=== PATIENT | female | born 1970 | race Caucasian/White ===

== ENCOUNTER 2016-11-23 14:17 | Outpatient (CLI) | payer OTHER | END 2016-11-23 14:18 | disposition home or self-care (01) | DX: D64.9 Anemia, unspecified (principal); M25.50 Pain in unspecified joint; F45.8 Other somatoform disorders; R51 Headache; E28.319 Asymptomatic premature menopause; E28.2 Polycystic ovarian syndrome ==

== ENCOUNTER 2016-11-30 19:01 | Outpatient (CLI) | payer OTHER ==
[2016-11-30] MEDS ORDERED: IOPAMIDOL-300 100 ML VIAL IVP ONE (19:24)
== END 2016-11-30 19:02 | disposition home or self-care (01) ==
DX: F45.8 Other somatoform disorders (principal)
CPT/HCPCS: 70491; Q9967

== ENCOUNTER 2016-12-30 20:29 | Emergency (ER) | payer OTHER ==
--- NOTE | 2016-12-30 20:36 | ED Physician Documentation ---
PD HPI HEENT - Stated complaint Stated Complaint: SORE THROAT/SINUS - History obtained from History obtained from: Patient - History of Present Illness Timing - onset: Today (this morning) Timing - duration: Hours Timing - details: Gradual onset Pain level now: 5 Associated symptoms: Congestion, Rhinorrhea. 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 HEENT: None Psych: None Musculoskeletal: Osteoarthritis Derm: None - Past Surgical History Past Surgical History: Yes General: EGD - Present Medications Home Medications: Ambulatory Orders Medication Instructions Recorded Confirmed Estrogen,Con/M-Progest Acet 1 each PO DAILY 04/11/15 12/30/16 [Prempro 0.3 mg-1.5 mg Tablet] Cetirizine [ZyrTEC] 10 mg PO DAILY #20 tablet 08/15/16 12/30/16 Amox/Clav 875/125 [Augmentin] 1 each PO Q12H #19 tablet 12/30/16 - Allergies Allergies/Adverse Reactions: Allergies Allergy/AdvReac Type Severity Reaction Status Date / Time codeine Allergy Anaphylaxis Verified 12/30/16 20:38 Sulfa (Sulfonamide Allergy Anaphylaxis Verified 12/30/16 20:38 Antibiotics) - Social History Does the pt smoke?: No Smoking Status: Never smoker Does the pt drink ETOH?: Yes Does the pt have substance abuse?: No - Immunizations Immunizations are current?: Yes PD ED PE NORMAL - Vitals Vital signs reviewed: Yes - General General: Alert and oriented X 3, No acute distress, Well developed/nourished - HEENT HEENT: Moist mucous membranes, Pharynx benign - Neck Neck: Supple, no meningeal sign Results - Vitals Vitals: Vital Signs - 24 hr 12/30/16 20:34 Temperature 37.1 C Heart Rate 99 Respiratory 18 Rate Blood Pressure 145/91 H O2 Saturation 100 Oxygen O2 Source Room air PD MEDICAL DECISION MAKING - ED course Complexity details: reviewed old records, considered differential, d/w patient Departure - Departure Disposition: 01 Home, Self Care Clinical Impression: Sinusitis Qualifiers: Sinusitis location: unspecified location Chronicity: acute Recurrence: not specified as recurrent Qualified Code(s): J01.90 - Acute sinusitis, unspecified Pharyngitis Qualifiers: Pharyngitis/tonsillitis etiology: unspecified etiology Qualified Code(s): J02.9 - Acute pharyngitis, unspecified Condition: Good Instructions: ED Sinusitis Abx Tx Follow-Up: Laurie Lam PA [Primary Care Provider] - (3-5 days if symptoms have not improved) Prescriptions: Amox/Clav 875/125 [Augmentin] 1 each PO Q12H #19 tablet Discharge Date/Time: 12/30/16 21:01
[2016-12-30 20:38] VITALS: BP 145/91
[2016-12-30] MEDS ORDERED: AMOX/CLAV 875 MG/125 MG TABLET PO STA (20:51)
[2016-12-30] MEDS ORDERED: DEXAMETHASONE 10 MG/ML VIAL PO STA (20:51)
[2016-12-30] MEDS ORDERED: AMOX/CLAV 875 MG/125 MG TABLET PO ONE (20:53)
[2016-12-30] MEDS ORDERED: CHERRY SYRUP 10 ML UDC PO ONE (20:54)
[2016-12-30] MEDS ORDERED: DEXAMETHASONE 10 MG/ML VIAL ONE (20:54)
== END 2016-12-30 21:01 | disposition home or self-care (01) ==
LOC: ED 20:29
DX: J01.90 Acute sinusitis, unspecified (principal); J02.9 Acute pharyngitis, unspecified
CPT/HCPCS: 99283; A9270

== ENCOUNTER 2017-06-13 13:34 | Outpatient (CLI) | payer OTHER ==
--- NOTE | 2017-06-15 12:30 | Ultrasound Report ---
PELVIC ULTRASOUND: 06/13/2017 COMPARISON: None. INDICATION: Pelvic pain. TECHNIQUE: Ultrasound of the pelvis was performed using transabdominal and endovaginal technique. FINDINGS: The uterus appears normal in size and echogenicity, apart from an endometrial calcificatio n measuring 6 mm. There are a few tiny nabothian cysts. No free fluid in the pelvis. The ovaries appear normal in size and echogenicity, with normal color Doppler flow. Uterus 6.1 x 3.9 x 2.3 cm. Right ovary 1.6 x 0.9 x 0.9 cm. Left ovary 1.7 x 1.5 x 1.5 cm. IMPRESSION: ESSENTIALLY NEGATIVE PELVIS ULTRASOUND. JOB #: [id number] EXT JOB #:[id number]
== END 2017-06-13 13:35 | disposition home or self-care (01) ==
LOC: DI 13:34
PROVIDERS: ATTEND Physician Assistant
DX: R10.2 Pelvic and perineal pain (principal)
CPT/HCPCS: 76830; 76856

== ENCOUNTER 2017-07-16 05:53 | Emergency (ER) | payer OTHER ==
--- NOTE | 2017-07-16 06:22 | ED Physician Documentation ---
PD HPI ABD PAIN - Stated complaint Stated Complaint: ABDOMINAL PAIN - Chief complaint Chief Complaint: Abd Pain - History obtained from History obtained from: Patient - History of Present Illness Timing - onset: Enter time (05:00), Today Timing - details: Abrupt onset, Waxing and waning Pain level max: 10 Pain level now: 2 Quality: Pain Location: RLQ Improved by: Position, Other (no ameliorating factors) Worsened by: Moving Associated symptoms: No: Fever, Nausea, Vomiting, Constipation, Dysuria, Chest pain Similar symptoms before: No diagnosis (similar episode 6 months ago, had pelvic US without diagnostic results) Recently seen: Not recently seen Review of Systems Constitutional: denies: Fever Cardiac: reports: Reviewed and negative Respiratory: reports: Reviewed and negative GI: reports: Abdominal Pain. 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 : None HEENT: None Psych: None Musculoskeletal: Osteoarthritis Derm: None - Past Surgical History Past Surgical History: Yes General: EGD - Present Medications Home Medications: Ambulatory Orders Medication Instructions Recorded Confirmed Estradiol 1 mg PO DAILY 12/31/16 07/16/17 Progesterone,Micronized 100 mg PO DAILY 12/31/16 07/16/17 [Progesterone] - Allergies Allergies/Adverse Reactions: Allergies Allergy/AdvReac Type Severity Reaction Status Date / Time codeine Allergy Anaphylaxis Verified 07/16/17 06:14 Sulfa (Sulfonamide Allergy Anaphylaxis Verified 07/16/17 06:14 Antibiotics) - Social History Does the pt smoke?: No Smoking Status: Never smoker Does the pt drink ETOH?: Yes Does the pt have substance abuse?: No - Immunizations Immunizations are current?: Yes - POLST Patient has POLST: No PD ED PE NORMAL - Vitals Vital signs reviewed: Yes - General General: Alert and oriented X 3, No acute distress, Well developed/nourished - Cardiac Cardiac: RRR, No murmur - Respiratory Respiratory: No respiratory distress, Clear bilaterally - Abdomen Abdomen: Soft - Back Back: No CVA TTP - Derm Derm: No rash - Extremities Extremities: No edema PD ED PE EXPANDED - Abdomen Abdomen: Tender to palpation, RLQ (mild TTP) Results - Vitals Vitals: Vital Signs - 24 hr 07/16/17 07/16/17 05:59 09:25 Temperature 36.6 C Heart Rate 76 64 Respiratory 17 14 Rate Blood Pressure 133/80 H 114/72 O2 Saturation 97 98 Oxygen O2 Source Room air - Labs Labs: Laboratory Tests 07/16/17 07/16/17 07/16/17 06:00 06:05 06:05 WBC 6.0 RBC 4.49 Hgb 14.0 Hct 42.2 MCV 94.0 MCH 31.2 H MCHC 33.2 RDW 12.1 Plt Count 198 MPV 8.6 Neut # 2.4 Lymph # 3.2 [place] # 0.4 Eos # 0.0 Baso # 0.0 Absolute Nucleated RBC 0.01 Nucleated RBC % 0.1 Sodium 139 Potassium 3.3 L Chloride 104 Carbon Dioxide 27 Anion Gap 8.0 BUN 24 H Creatinine 0.9 Estimated GFR (MDRD) 67 L Glucose 98 Calcium 9.0 Total Bilirubin 0.3 AST 23 ALT 24 Alkaline Phosphatase 36 L Total Protein 7.6 Albumin 4.4 Globulin 3.2 Albumin/Globulin Ratio 1.4 Lipase 50 Urine Color YELLOW Urine Clarity CLEAR Urine pH 6.0 Ur Specific [place] 1.010 Urine Protein NEGATIVE Urine Glucose (UA) NEGATIVE Urine Ketones NEGATIVE Urine Occult Blood NEGATIVE Urine Nitrite NEGATIVE Urine Bilirubin NEGATIVE Urine Urobilinogen 0.2 (NORMAL) Ur Leukocyte Esterase TRACE H Urine RBC 0-5 Urine WBC 6-10 H Ur Squamous Epith Cells MOD Squamous H Urine Bacteria Few Ur Microscopic Review INDICATED Urine Culture Comments NOT INDICATED - Rads (name of study) CT A/P Radiology: Prelim report reviewed, See rad report PD MEDICAL DECISION MAKING - ED course Complexity details: reviewed results, re-evaluated patient, considered differential, d/w patient Departure - Departure Disposition: 01 Home, Self Care Clinical Impression: Abdominal pain, Cholelithiasis Condition: Good Instructions: ED Abdominal Pain Unkn Cause Follow-Up: Nikita Boyce MD [Provider Admit Priv/Credential] - Comments: Your CT scan shows that you have gallstones. This might be an incidental finding (not causing your symptoms). Follow up with your primary care physician , as they might order other tests and/or might refer you to a general surgeon or rehabilitation liaison. Discharge Date/Time: 07/16/17 09:40
[2017-07-16 06:24] LABS: BASOPHILS % (AUTO) 0.5 %; EOSINOPHILS % (AUTO) 0.3 %; HCT - HEMATOCRIT 42.2 % (37.0-47.0); LYMPHOCYTES # (AUTO) 3.2 10^3/uL (1.5-3.5); MEAN CORPUSCULAR HEMOGLOBIN 31.2 pg (27.0-31.0); MEAN CORPUSCULAR HGB CONC 33.2 g/dL (32.0-36.0); MEAN PLATELET VOLUME 8.6 fL (7.9-10.8); MONOCYTES # (AUTO) 0.4 10^3/uL (0.0-1.0); NEUTROPHILS # (AUTO) 2.4 10^3/uL (1.5-6.6); NEUTROPHILS % (AUTO) 40.2 %; NUCLEATED RED BLOOD CELLS AUTO 0.1 /100WBC; RED BLOOD COUNT 4.49 10^6/uL (4.20-5.40); RED CELL DISTRIBUTION WIDTH 12.1 % (12.0-15.0)
[2017-07-16 06:27] LABS: BILIRUBIN,URINE NEGATIVE (NEGATIVE)
[2017-07-16 06:31] LABS: UA w/ MICROSCOPIC CHARGE YES
[2017-07-16 06:36] LABS: ALBUMIN/GLOBULIN RATIO 1.4 (1.0-2.2); BILIRUBIN,TOTAL 0.3 mg/dL (0.2-1.0); CREATININE 0.9 mg/dL (0.4-1.0); POTASSIUM 3.3 mmol/L (3.5-5.0); TOTAL PROTEIN 7.6 g/dL (6.7-8.2)
[2017-07-16 06:59] LABS: UR CULTURE IF IND NOT INDICATED
[2017-07-16] MEDS ORDERED: IOPAMIDOL-300 100 ML VIAL ONE (07:35)
[2017-07-16] MEDS ORDERED: IOPAMIDOL-300 100 ML VIAL IVP ONE (07:56)
--- NOTE | 2017-07-16 08:21 | CT Preliminary Report ---
Exam: CT ABDOMEN/PELVIS W/ IMPRESSION: 1. No acute intra-abdominal or intrapelvic abnormality. 2. Cholecystolithiasis. [facility] SITE ID: [id number]
--- NOTE | 2017-07-16 08:24 | CT Report ---
EXAM: CT ABDOMEN AND PELVIS EXAM DATE: 07/16/2017 07:57 AM. CLINICAL HISTORY: RLQ pain. COMPARISONS: None available. TECHNIQUE: Routine helical CT imaging was performed through the abdomen and pelvis. IV contrast: 100M L OF ISOVUE 300. Enteric contrast: No. Reconstructions: Coronal and sagittal. In accordance with CT protocol optimization, one or more of the following dose reduction techniques w ere utilized for this exam: automated exposure control, adjustment of mA and/or KV based on patient s ize, or use of iterative reconstructive technique. FINDINGS: Lung Bases: Unremarkable. Liver: There are 2 tiny low-density lesions in the liver which are too small to characterize. Liver o therwise appears unremarkable. Gallbladder/Bile Ducts: There are gallstones. No abnormal bile duct dilation. Spleen: Normal. Pancreas: Normal. Adrenal Glands: Normal. Kidneys: Normal. No masses or hydronephrosis. Peritoneal Cavity/Bowel: Normal. No free fluid, free air or adenopathy. No masses or acute inflammato ry process. The appendix is well visualized and normal series 6 images 47 through 51. Pelvic Organs: Normal. The bladder and visualized pelvic organs are within normal limits. Vasculature: No aneurysms or other significant abnormality. Bones: Prominent Schmorl's node in the superior endplate of L3. Anterolisthesis of L5 on S1 measuring 0.5 cm. Other: No pathologic adenopathy. IMPRESSION: 1. No acute intra-abdominal or intrapelvic abnormality. 2. Cholecystolithiasis. [facility] Referring Provider Line: [phone] SITE ID: [id number]
[2017-07-16 09:26] VITALS: BP 114/72
== END 2017-07-16 09:40 | disposition home or self-care (01) ==
LOC: ED 05:53
DX: K80.20 Calculus of gallbladder without cholecystitis without obstruction (principal); M19.90 Unspecified osteoarthritis, unspecified site
CPT/HCPCS: 36415; 74177; 80053; 81001; 83690; 85025; 99283; Q9967; 81003; 87086

== ENCOUNTER 2017-10-06 13:09 | Outpatient (CLI) | payer OTHER | END 2017-10-06 13:10 | disposition home or self-care (01) | LOC: CAM 13:09 | PROVIDERS: ATTEND Nurse Practitioner Family | DX: M25.579 Pain in unspecified ankle and joints of unspecified foot (principal); G89.29 Other chronic pain; M54.5 Low back pain | CPT/HCPCS: 97813; 97814 ==

== ENCOUNTER 2017-11-10 13:04 | Outpatient (CLI) | payer OTHER | END 2017-11-10 13:05 | disposition home or self-care (01) | LOC: CAM 13:04 | PROVIDERS: ATTEND Nurse Practitioner Family | DX: M25.579 Pain in unspecified ankle and joints of unspecified foot (principal); M54.2 Cervicalgia; M54.5 Low back pain | CPT/HCPCS: 97810; 97811 ==

== ENCOUNTER 2017-12-08 18:54 | Outpatient (CLI) | payer OTHER ==
--- NOTE | 2017-12-09 11:38 | XRAY Report ---
TWO-VIEW LUMBAR SPINE: 12/08/2017 CLINICAL INDICATION: Back pain. FINDINGS: AP and lateral views of the lumbar spine demonstrate a mild anterior wedge compression deformity of L3. There is mild dextroscoliosis. No acute fracture is seen. The bowel gas pattern is normal. IMPRESSION: 1. REMOTE MILD ANTERIOR WEDGE COMPRESSION DEFORMITY OF L3. 2. MILD DEXTROSCOLIOSIS. TD: 12/09/2017 11:37
--- NOTE | 2017-12-09 11:42 | XRAY Report ---
THREE-VIEW RIGHT KNEE: 12/08/2017 CLINICAL INDICATION: Right knee pain. FINDINGS: AP, lateral, sunrise views of the right knee demonstrate mild osteoarthritis, with small marginal osteophytes. Old, healed proximal tibial and fibular shaft fractures are noted. No effusion is present. IMPRESSION: MILD RIGHT KNEE OSTEOARTHRITIS. TD: 12/09/2017 11:41
== END 2017-12-08 18:55 | disposition home or self-care (01) ==
LOC: DI 18:54
PROVIDERS: ATTEND Physician Assistant
DX: M17.11 Unilateral primary osteoarthritis, right knee (principal); M43.8X6 Other specified deforming dorsopathies, lumbar region; M41.86 Other forms of scoliosis, lumbar region
CPT/HCPCS: 72100

== ENCOUNTER 2017-12-10 09:48 | Emergency (ER) | payer OTHER ==
[2017-12-10] MEDS ORDERED: DEXAMETHASONE 10 MG/ML VIAL PO STA (10:03)
--- NOTE | 2017-12-10 10:04 | ED Physician Documentation ---
PD HPI HEENT - Stated complaint Stated Complaint: SORE THROAT - Chief complaint Chief Complaint: Heent - History obtained from History obtained from: Patient - History of Present Illness Timing - onset: Yesterday Timing - duration: Days (2) Timing - details: Gradual onset, Still present Location: Throat Improves: Medication Worsens: Swalllowing Associated symptoms: Congestion. 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 She states that his throat feels dry and scratchy and she lost her voice yesterday. She states that she lost her voice again this morning and she has not had a cough or drainage down the back of her throat. Review of Systems Constitutional: denies: Fever Eyes: denies: Decreased vision Ears: denies: Ear pain Nose: reports: Congestion. 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 : None HEENT: None Psych: None Musculoskeletal: Osteoarthritis Derm: None - Past Surgical History Past Surgical History: Yes General: EGD - Present Medications Home Medications: Ambulatory Orders Medication Instructions Recorded Confirmed Estradiol 1 mg PO DAILY 12/31/16 07/16/17 Progesterone,Micronized 100 mg PO DAILY 12/31/16 07/16/17 [Progesterone] - Allergies Allergies/Adverse Reactions: Allergies Allergy/AdvReac Type Severity Reaction Status Date / Time codeine Allergy Anaphylaxis Verified 12/10/17 09:56 Sulfa (Sulfonamide Allergy Anaphylaxis Verified 12/10/17 09:56 Antibiotics) - Social History Does the pt smoke?: No Smoking Status: Never smoker Does the pt drink ETOH?: Yes Does the pt have substance abuse?: No - Immunizations Immunizations are current?: Yes - POLST Patient has POLST: No PD ED PE NORMAL - Vitals Vital signs reviewed: Yes (normal ) - General General: Alert and oriented X 3, No acute distress, Well developed/nourished - HEENT HEENT: Atraumatic, PERRL, EOMI, Ears normal, Moist mucous membranes, Pharynx benign, Dentition benign - Neck Neck: Supple, no meningeal sign, No bony TTP - Cardiac Cardiac: RRR, No murmur - Respiratory Respiratory: No respiratory distress, Clear bilaterally - Abdomen Abdomen: Soft, Non tender - Back Back: No CVA TTP, No spinal TTP - Derm Derm: Normal color, Warm and dry, No rash - Extremities Extremities: No deformity, No edema - Neuro Neuro: Alert and oriented X 3, No motor deficit, No sensory deficit, Normal speech Eye Opening: Spontaneous Motor: Obeys Commands Verbal: Oriented GCS Score: 15 - Psych Psych: Normal mood, Normal affect Results - Vitals Vitals: Vital Signs - 24 hr 12/10/17 12/10/17 09:52 10:47 Temperature 36.5 C 36.5 C Heart Rate 81 56 L Respiratory 14 18 Rate Blood Pressure 122/70 112/71 O2 Saturation 96 97 Oxygen O2 Source Room air - Labs Labs: Laboratory Tests 12/10/17 10:00 Group A Strep Rapid Negative PD MEDICAL DECISION MAKING - ED course Complexity details: reviewed results, re-evaluated patient, considered differential, d/w patient ED course: 47 y/o female with a sore throat and no cough or OM on exam. She has lost her voice and likely due to para-influenza and she is treated for viral URI. Departure - Departure Disposition: 01 Home, Self Care Clinical Impression: Viral URI Condition: Stable Instructions: ED Pharyngitis Viral Follow-Up: Laurie Lam PA [Primary Care Provider] - Discharge Date/Time: 12/10/17 10:47
[2017-12-10] MEDS ORDERED: CHERRY SYRUP 10 ML UDC PO ONE (10:16)
[2017-12-10 10:48] VITALS: BP 112/71
== END 2017-12-10 10:47 | disposition home or self-care (01) ==
LOC: ED 09:48
DX: J06.9 Acute upper respiratory infection, unspecified (principal); B97.89 Other viral agents as the cause of diseases classified elsewhere; M19.90 Unspecified osteoarthritis, unspecified site
CPT/HCPCS: 87070; 87430; 99283; A9270

== ENCOUNTER 2017-12-15 12:59 | Outpatient (CLI) | payer OTHER | END 2017-12-15 13:00 | disposition home or self-care (01) | LOC: CAM 12:59 | PROVIDERS: ATTEND Nurse Practitioner Family | DX: M25.579 Pain in unspecified ankle and joints of unspecified foot (principal); M54.2 Cervicalgia; M54.5 Low back pain | CPT/HCPCS: 97810; 97811 ==

== ENCOUNTER 2017-12-29 13:02 | Outpatient (CLI) | payer OTHER | END 2017-12-29 13:03 | disposition home or self-care (01) | LOC: CAM 13:02 | PROVIDERS: ATTEND Nurse Practitioner Family | DX: M25.579 Pain in unspecified ankle and joints of unspecified foot (principal); M54.2 Cervicalgia; M54.5 Low back pain | CPT/HCPCS: 97810; 97811 ==

== ENCOUNTER 2018-01-12 13:12 | Outpatient (CLI) | payer OTHER | END 2018-01-12 13:13 | disposition home or self-care (01) | LOC: CAM 13:12 | PROVIDERS: ATTEND Nurse Practitioner Family | DX: M25.579 Pain in unspecified ankle and joints of unspecified foot (principal); M54.2 Cervicalgia; M54.5 Low back pain | CPT/HCPCS: 97810; 97811 ==

== ENCOUNTER 2018-01-20 18:12 | Emergency (ER) | payer OTHER ==
[2018-01-20 18:33] LABS: BILIRUBIN,URINE NEGATIVE (NEGATIVE); GLUCOSE, URINE (UA) NEGATIVE (NEGATIVE); KETONES,URINE (UA) NEGATIVE (NEGATIVE); LEUKOCYTE ESTERASE, URINE NEGATIVE (NEGATIVE); NITRITE,URINE NEGATIVE (NEGATIVE); OCCULT BLOOD,URINE NEGATIVE (NEGATIVE); PROTEIN,URINE NEGATIVE (NEGATIVE); UROBILINOGEN,URINE 0.2 (NORMAL) E.U./dL (NORMAL)
[2018-01-20 18:35] LABS: CLARITY,URINE CLEAR (CLEAR)
--- NOTE | 2018-01-20 18:43 | ED Physician Documentation ---
PD HPI ABD PAIN - Stated complaint Stated Complaint: ABD PAIN - Chief complaint Chief Complaint: Abd Pain - History obtained from History obtained from: Patient - History of Present Illness Timing - onset: Today Timing - duration: Hours (6) Timing - details: Gradual onset Pain level max: 8 Pain level now: 5 Quality: Aching, Pain Location: RLQ Improved by: Laying still Worsened by: Moving, Palpation Associated symptoms: Nausea, Diarrhea. No: Fever, Vomiting, Hematemesis, Constipation, Melena, Hematochezia Similar symptoms before: No diagnosis Recently seen: Not recently seen - Additional information Additional information: Patient states he developed right lower quadrant abdominal pain today. She states this is happened several times in the past with no cause found. 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 HEENT: None Psych: None Musculoskeletal: Osteoarthritis Derm: None - Past Surgical History Past Surgical History: Yes General: EGD - Present Medications Home Medications: Ambulatory Orders Medication Instructions Recorded Confirmed Estradiol 1 mg PO DAILY 12/31/16 07/16/17 Progesterone,Micronized 100 mg PO DAILY 12/31/16 07/16/17 [Progesterone] Hyoscyamine Sulfate [Levsin-Sl] 0.125 mg SL Q6H PRN #20 tab.subl 01/20/18 Melatonin 10 mg PO 01/20/18 - Allergies Allergies/Adverse Reactions: Allergies Allergy/AdvReac Type Severity Reaction Status Date / Time codeine Allergy Anaphylaxis Verified 01/20/18 18:17 Sulfa (Sulfonamide Allergy Anaphylaxis Verified 01/20/18 18:17 Antibiotics) - Social History Does the pt smoke?: No Smoking Status: Never smoker Does the pt drink ETOH?: Yes Does the pt have substance abuse?: No - Immunizations Immunizations are current?: Yes - POLST Patient has POLST: No PD ED PE NORMAL - Vitals Vital signs reviewed: Yes - General General: Alert and oriented X 3, No acute distress - HEENT HEENT: Moist mucous membranes - Neck Neck: Supple, no meningeal sign - Cardiac Cardiac: RRR, Strong equal pulses - Respiratory Respiratory: No respiratory distress, Clear bilaterally - Abdomen Abdomen: Soft, Other (Tender to palpation right lower quadrant at McBurney's point. No peritoneal signs.) - Back Back: No CVA TTP - Derm Derm: Warm and dry, No rash - Extremities Extremities: No edema, No calf tenderness / cord - Neuro Neuro: Alert and oriented X 3 Results - Vitals Vitals: Vital Signs - 24 hr 01/20/18 01/20/18 01/20/18 18:15 18:56 20:01 Temperature 36.1 C L 36.8 C Heart Rate 78 75 65 Respiratory 18 12 18 Rate Blood Pressure 129/67 128/75 121/83 H O2 Saturation 100 100 100 Oxygen O2 Source Room air - Labs Labs: Laboratory Tests 01/20/18 01/20/18 01/20/18 18:20 18:35 18:35 WBC 5.2 RBC 4.44 Hgb 13.9 Hct 41.3 MCV 92.9 MCH 31.2 H MCHC 33.5 RDW 12.4 Plt Count 211 MPV 8.8 Neut # (Auto) 2.6 Lymph # (Auto) 2.1 [place] # (Auto) 0.3 Eos # (Auto) 0.0 Baso # (Auto) 0.0 Absolute Nucleated RBC 0.01 Nucleated RBC % 0.1 Sodium 135 Potassium 3.8 Chloride 99 L Carbon Dioxide 28 Anion Gap 8.0 BUN 14 Creatinine 0.9 Estimated GFR (MDRD) 67 L Glucose 85 Calcium 9.0 Total Bilirubin 0.5 AST 24 ALT 28 Alkaline Phosphatase 36 L Total Protein 7.8 Albumin 4.3 Globulin 3.5 Albumin/Globulin Ratio 1.2 Lipase 39 Urine Color YELLOW Urine Clarity CLEAR Urine pH 6.0 Ur Specific [place] 1.020 Urine Protein NEGATIVE Urine Glucose (UA) NEGATIVE Urine Ketones NEGATIVE Urine Occult Blood NEGATIVE Urine Nitrite NEGATIVE Urine Bilirubin NEGATIVE Urine Urobilinogen 0.2 (NORMAL) Ur Leukocyte Esterase NEGATIVE Ur Microscopic Review NOT INDICATED Urine Culture Comments NOT INDICATED - Rads (name of study) CT abd/pelvis Radiology: Prelim report reviewed, EMP read contemporaneously, See rad report ( No acute abnormalities. Normal appendix. Cholelithiasis) PD MEDICAL DECISION MAKING - ED course Complexity details: reviewed results, re-evaluated patient, considered differential, d/w patient ED course: Patient is a 47-year-old female who presents to the emergency department with abdominal pain. Unclear etiology. No acute laboratory abnormalities. No acute findings on CT scan. Pain improved in the emergency department. Possible intestinal spasms? Would recommend that she follow-up with her doctor for further care. May benefit from a colonoscopy or GI referral. Will trial on hycosamine and see how this progresses and if the Levsin helps her. Patient counseled regarding signs and symptoms for which I believe and urgent re- evaluation would be necessary. Patient with good understanding of and agreement to plan and is comfortable going home at this time This document was made in part using voice recognition software. While efforts are made to proofread this document, sound alike and grammatical errors may occur. Departure - Departure Disposition: 01 Home, Self Care Clinical Impression: Abdominal pain Qualifiers: Abdominal location: right lower quadrant Qualified Code(s): R10.31 - Right lower quadrant pain Cholelithiasis Qualifiers: Cholelithiasis location: gallbladder Cholecystitis presence: without cholecystitis Biliary obstruction: without biliary obstruction Qualified Code(s) : K80.20 - Calculus of gallbladder without cholecystitis without obstruction Condition: Good Instructions: ED Abdominal Pain Unkn Cause Follow-Up: Laurie Lam PA [Primary Care Provider] - Within 1 week Prescriptions: Hyoscyamine Sulfate [Levsin-Sl] 0.125 mg SL Q6H PRN #20 tab.subl PRN Reason: Abdominal Pain Comments: Return if you worsen. The cause of your symptoms is unclear today. You would likely benefit from a colonoscopy and a GI referral. Discharge Date/Time: 01/20/18 20:57
[2018-01-20 18:48] LABS: BASOPHILS % (AUTO) 0.7 %; EOSINOPHILS % (AUTO) 0.1 %; HGB - HEMOGLOBIN 13.9 g/dL (12.0-16.0); LYMPHOCYTES # (AUTO) 2.1 10^3/uL (1.5-3.5); LYMPHOCYTES % (AUTO) 41.5 %; MEAN CORPUSCULAR HEMOGLOBIN 31.2 pg (27.0-31.0); MEAN CORPUSCULAR HGB CONC 33.5 g/dL (32.0-36.0); MEAN CORPUSCULAR VOLUME 92.9 fL (81.0-99.0); MEAN PLATELET VOLUME 8.8 fL (7.9-10.8); MONOCYTES # (AUTO) 0.3 10^3/uL (0.0-1.0); MONOCYTES % (AUTO) 6.4 %; NEUTROPHILS # (AUTO) 2.6 10^3/uL (1.5-6.6); NEUTROPHILS % (AUTO) 51.3 %; PLT - PLATELET COUNT 211 10^3/uL (130-450); RED BLOOD COUNT 4.44 10^6/uL (4.20-5.40); RED CELL DISTRIBUTION WIDTH 12.4 % (12.0-15.0); WHITE BLOOD COUNT 5.2 x10^3/uL (4.8-10.8)
[2018-01-20 18:54] LABS: ALBUMIN 4.3 g/dL (3.2-5.5); ALBUMIN/GLOBULIN RATIO 1.2 (1.0-2.2); BILIRUBIN,TOTAL 0.5 mg/dL (0.2-1.0); CREATININE 0.9 mg/dL (0.4-1.0); TOTAL PROTEIN 7.8 g/dL (6.7-8.2)
[2018-01-20] MEDS ORDERED: IOPAMIDOL-300 100 ML VIAL ONE (19:00)
[2018-01-20] MEDS ORDERED: IOPAMIDOL-300 100 ML VIAL IVP ONE (19:17)
--- NOTE | 2018-01-20 20:00 | CT Report ---
EXAM: CT ABDOMEN AND PELVIS EXAM DATE: 01/20/2018 07:18 PM. CLINICAL HISTORY: RLQ abd pain. COMPARISONS: None. TECHNIQUE: Routine helical CT imaging was performed through the abdomen and pelvis. IV contrast: 100 cc Isovue-300. Enteric contrast: No. Reconstructions: Coronal and sagittal. In accordance with CT protocol optimization, one or more of the following dose reduction techniques w ere utilized for this exam: automated exposure control, adjustment of mA and/or KV based on patient s ize, or use of iterative reconstructive technique. FINDINGS: ABDOMEN: Lung Bases: Incompletely included lower lungs are grossly clear. Heart size is within normal limits. No basilar effusions. Liver: Unremarkable aside from focal fat adjacent to the fissure for the possible ligament. Spleen: Unremarkable. Pancreas: Unremarkable. Gallbladder/Bile Ducts: Layering small gallstones are present. Biliary tree is normal caliber. Adrenal Glands: Unremarkable. Kidneys: No mass, calculi, or hydronephrosis. Peritoneum/Mesentery/Bowel: No free fluid, free air, or collection. No intestinal obstruction or inflammation. The appendix is within normal limits. Lymph nodes: No mesenteric, periportal, or retroperitoneal lymphadenopathy. Retroperitoneum: Abdominal aorta is nonaneurysmal. Portal vein is patent. Hepatic veins are patent. PELVIS: The bladder is unremarkable for the degree of distention. Uterus or partial uterus appears to be present. No obvious abnormally enlarged adnexal masses or cysts. No pelvic lymphadenopathy. Bones: No suspicious osseous lesions. IMPRESSION: No acute abnormalities. Cholelithiasis. [facility] Referring Provider Line: [phone] SITE ID: [id number]
--- NOTE | 2018-01-20 20:00 | CT Preliminary Report ---
Exam: CT ABDOMEN/PELVIS W/ IMPRESSION: No acute abnormalities. Cholelithiasis. [facility] SITE ID: [id number]
[2018-01-20 20:02] VITALS: BP 121/83
[2018-01-20] MEDS ORDERED: HYOSCYAMINE SL 0.125 MG TABLET SL STA (20:23)
== END 2018-01-20 20:57 | disposition home or self-care (01) ==
LOC: ED 18:12
DX: R10.31 Right lower quadrant pain (principal); K80.20 Calculus of gallbladder without cholecystitis without obstruction
CPT/HCPCS: 36415; 74177; 80053; 81003; 83690; 85025; 99283; 99284; A9270; Q9967; 81001; 87086

== ENCOUNTER 2018-01-26 13:03 | Outpatient (CLI) | payer OTHER | END 2018-01-26 13:04 | disposition home or self-care (01) | LOC: CAM 13:03 | PROVIDERS: ATTEND Nurse Practitioner Family | DX: M25.579 Pain in unspecified ankle and joints of unspecified foot (principal); M54.2 Cervicalgia; M54.5 Low back pain | CPT/HCPCS: 97810; 97811 ==

== ENCOUNTER 2018-02-06 20:44 | Outpatient (CLI) | payer OTHER ==
--- NOTE | 2018-02-07 11:27 | Ultrasound Report ---
Procedure Date: 02/06/2018 Accession Number: [id number] / [id number] Procedure: US - Pelvic w/Transvaginal CPT Code: FULL RESULT: EXAM: Pelvic w/Transvaginal DATE: 02/06/2018 9:51 PM CLINICAL HISTORY: RIGHT LOWER QUADRANT PAIN COMPARISON: 06/13/2017 pelvic ultrasound, 01/20/[address] TECHNIQUE: Real time scanning by the cuff turner was saved static images reviewed. Transabdominal approach for global evaluation. Endovaginal approach for detailed assessment of the uterus and ovaries. FINDINGS: Uterus: 5.8 x 2.8 x 4.1 cm, volume 35 cc. Retroverted position. Normal overall size and echotexture. Masses: None. Endometrium: 2 mm. Contains a 6 x 2 mm calcification as before. Cervix: Unremarkable. Right Ovary/Adnexa: 1.7 x 0.7 x 0.7 cm, volume 0.4 cc. Normal echotexture. Blood flow is present. No adnexal mass is seen. Left Ovary/Adnexa: 1.4 x 0.6 x 1.2 cm, volume cc. Normal echotexture. Blood flow is present. No adnexal mass is seen. Free Fluid: None. Other: No significant change compared with 06/13/2017. IMPRESSION: Stable essentially negative pelvic ultrasound compared with 06/13/2017. An etiology for pain is not identified.. [facility]
== END 2018-02-06 20:45 | disposition home or self-care (01) ==
LOC: DI 20:44
PROVIDERS: ATTEND Internal Medicine
DX: R10.31 Right lower quadrant pain (principal)
CPT/HCPCS: 76830; 76856

== ENCOUNTER 2018-02-09 13:08 | Outpatient (CLI) | payer OTHER | END 2018-02-09 13:09 | disposition home or self-care (01) | LOC: CAM 13:08 | PROVIDERS: ATTEND Nurse Practitioner Family | DX: M25.579 Pain in unspecified ankle and joints of unspecified foot (principal); M54.2 Cervicalgia; M54.5 Low back pain; T14.90XS Injury, unspecified, sequela; V89.2XXS Person injured in unspecified motor-vehicle accident, traffic, sequela | CPT/HCPCS: 97810; 97811 ==

== ENCOUNTER 2018-03-02 13:08 | Outpatient (CLI) | payer OTHER | END 2018-03-02 13:09 | disposition home or self-care (01) | LOC: CAM 13:08 | PROVIDERS: ATTEND Nurse Practitioner Family | DX: M25.579 Pain in unspecified ankle and joints of unspecified foot (principal); M54.2 Cervicalgia; M54.5 Low back pain | CPT/HCPCS: 97810; 97811 ==

== ENCOUNTER 2018-03-16 12:56 | Outpatient (CLI) | payer OTHER | END 2018-03-16 12:57 | disposition home or self-care (01) | LOC: CAM 12:56 | PROVIDERS: ATTEND Nurse Practitioner Family | DX: M25.579 Pain in unspecified ankle and joints of unspecified foot (principal); M54.2 Cervicalgia; M54.5 Low back pain | CPT/HCPCS: 97810; 97811 ==

== ENCOUNTER 2018-04-05 13:28 | Day surgery (SDC) | payer OTHER ==
[2018-04-05] MEDS ORDERED: LACTATED RINGERS 1,000 ML IV ONE ×2 (13:44)
--- NOTE | 2018-04-05 14:34 | ANESTHESIA ---
Pre-Anesthesia VS, & Labs - Diagnosis Abdominal pain, change in bowel habits - Procedure Colonoscopy Vital Signs: Temp Pulse Resp BP Pulse Ox 36.4 C L 16 115/69 100 04/05/18 13:39 04/05/18 13:39 04/05/18 13:39 04/05/18 13:39 Height 5 ft 3 in Weight (kg) 60.7 kg Body Mass Index 23.9 - NPO >8 hours Last Fluid Intake: 13:15 - Is Patient ?: No (Patient states she is post menopausal) Home Medications and Allergies Home Medications: Ambulatory Orders Medication Instructions Recorded Confirmed Estradiol 1 mg PO DAILY 12/31/16 07/16/17 Progesterone,Micronized 100 mg PO DAILY 12/31/16 04/05/18 [Progesterone] Hyoscyamine Sulfate [Levsin-Sl] 0.125 mg SL Q6H PRN #20 tab.subl 01/20/18 Melatonin 10 mg PO 01/20/18 Allergies/Adverse Reactions: Allergies Allergy/AdvReac Type Severity Reaction Status Date / Time shellfish derived Allergy Severe Anaphylaxis Verified 04/05/18 14:07 codeine Allergy Anaphylaxis Verified 01/20/18 18:17 Sulfa (Sulfonamide Allergy Anaphylaxis Verified 01/20/18 18:17 Antibiotics) Anes History & Medical History - Anesthetic History Anesthesia Complications: reports: Post-Operative Nausea/Vomiting Family history of Anesthesia Complications: Denies Family history of Malignant Hyperthermia: Denies - Medical History Cardiovascular: reports: None Pulmonary: reports: None Gastrointestinal: reports: None Urinary: reports: None Neuro: reports: None Musculoskeletal: reports: None Endocrine/Autoimmune: reports: None Blood Disorders: reports: Anemia Skin: reports: None Smoking Status: Former smoker (Quit in 2007) Psychosocial: reports: Alcohol (1-2x per month) - Surgical History General: EGD Orthopedic: Other (right foot bunionectomy, Ganglion cyst, right leg trauma/ fracture) Exam General: Alert, Oriented x3, Cooperative, No acute distress Dental: WNL Mouth Openin Fingerbreadth Neck Mobility: Normal Mallampati classification: II Thyromental Distance: 4-6 cm Respiratory: Lungs clear, Normal breath sounds, No respiratory distress, No accessory muscle use Cardiovascular: Regular rate, Normal S1, Normal S2, No murmurs Mental/Cognitive Status: Alert/Oriented X3, Normal for patient Cognitive Status: Within normal limits Plan Anesthesia Type: MAC Consent for Procedure(s) Verified and Reviewed: Yes Code Status: Attempt Resuscitation ASA classification: 1-Healthy patient Is this case an emergency?: No
[2018-04-05] MEDS ORDERED: fentaNYL 100 MCG/2 ML VIAL ONE (14:44)
[2018-04-05] MEDS ORDERED: MIDAZOLAM 2 MG/2 ML VIAL ONE (14:44)
[2018-04-05] MEDS ORDERED: PROPOFOL 200 MG/20 ML VIAL IVP ONE (15:29)
[2018-04-05 15:51] VITALS: BP 98/64
== END 2018-04-05 13:29 | disposition home or self-care (01) ==
LOC: SDS 13:28
PROVIDERS: ATTEND Internal Medicine
PROC: 0DBE8ZX Excision of Large Intestine, Via Natural or Artificial Opening Endoscopic, Diagnostic (ICD-10-PCS; principal; 2018-04-05 14:30)
DX: R10.31 Right lower quadrant pain (principal); R19.7 Diarrhea, unspecified
CPT/HCPCS: 45380; J7120

== ENCOUNTER 2018-05-12 18:59 | Outpatient (CLI) | payer OTHER ==
--- NOTE | 2018-05-12 18:15 | XRAY Report ---
Reason: TRAUMA,PAIN Procedure Date: 05/12/2018 Accession Number: [id number] / [id number] Procedure: XR - Foot 3 View RT CPT Code: FULL RESULT: EXAM: RIGHT FOOT RADIOGRAPHY EXAM DATE: 05/12/2018 06:01 PM. CLINICAL HISTORY: Trauma, pain. COMPARISON: None. TECHNIQUE: 3 views. FINDINGS: Bones: No fracture or focal bony lesion. Joints: No evidence of dislocation. There is first metatarsophalangeal joint arthrodesis. Soft Tissues: No unexpected soft tissue findings. IMPRESSION: No evidence of fracture or dislocation. RADIA
== END 2018-05-12 19:00 | disposition home or self-care (01) ==
LOC: DI 18:59
PROVIDERS: ATTEND Physician Assistant
DX: M79.671 Pain in right foot (principal); S99.921A Unspecified injury of right foot, initial encounter

== ENCOUNTER 2018-07-20 23:42 | Outpatient (CLI) | payer OTHER ==
--- NOTE | 2018-07-24 06:37 | Ultrasound Report ---
Reason: MULTINODULAR GOITER Procedure Date: 07/21/2018 Accession Number: [id number] / [id number] Procedure: US - Head or Neck Soft Tissue CPT Code: FULL RESULT: EXAM: THYROID ULTRASOUND EXAM DATE: 07/21/2018 12:27 AM. CLINICAL HISTORY: Multinodular goiter. COMPARISON: None. TECHNIQUE: Real time sonographic imaging of the thyroid was performed by the specification consultant. Multiple promotions representative static images were saved for review. FINDINGS: THYROID GLAND: Right Lobe: 5.1 x 1.5 x 1.4 cm, volume 5.6 cc. Normal background echotexture. Right Lobe Nodules: Benign-appearing 0.4 cm nodule, heterogeneous. Left Lobe: 4.2 x 1.3 x 1.0 cm, volume 2.9 cc. Normal background echotexture. Left Lobe Nodules: None. Isthmus: 0.2 cm AP. Isthmic Nodules: Benign-appearing heterogeneous 0.3 cm nodule. LYMPH NODES: No adenopathy demonstrated in the central or lateral compartment. OTHER: None. IMPRESSION: Benign-appearing nodules measuring up to 0.4 cm. Management recommendations are based on 2015 [place] [employer] Management Guidelines for Adult Patients with Thyroid Nodules and Differentiated Thyroid Cancer. RADIA
== END 2018-07-20 23:43 | disposition home or self-care (01) ==
LOC: DI 23:42
PROVIDERS: ATTEND Family Medicine
DX: E04.2 Nontoxic multinodular goiter (principal)
CPT/HCPCS: 76536

== ENCOUNTER 2018-07-25 19:18 | Outpatient (CLI) | payer OTHER ==
[2018-07-25 20:21] LABS: THYROID STIMULATING HORMONE 0.87 uIU/mL (0.34-5.60)
[2018-07-25 20:23] LABS: FREE T4 (FREE THYROXINE) 0.95 ng/dL (0.58-1.64)
== END 2018-07-25 19:19 | disposition home or self-care (01) ==
LOC: LAB 19:18
PROVIDERS: ATTEND Family Medicine
DX: E04.2 Nontoxic multinodular goiter (principal)
CPT/HCPCS: 36415; 84439; 84443

== ENCOUNTER 2018-09-28 14:13 | Outpatient (CLI) | payer BC, OTHER ==
--- NOTE | 2018-09-29 09:31 | Mammography Report ---
Reason: SCREENING MAMMO Procedure Date: 09/28/2018 Accession Number: [id number] / [id number] Procedure: JOSEPH - Screening Mammo w/Darrel CPT Code: FULL RESULT: EXAM: Screening Mammo w/Darrel DATE: 09/28/2018 3:04 PM CLINICAL HISTORY: Routine screening. No reported personal or family history of breast cancer. TECHNIQUE: Bilateral CC and MLO views were obtained. COMPARISON: None available at the time of this dictation. Patient cannot remember prior facility. New imaging baseline. FINDINGS: The breasts demonstrate heterogeneously dense fibroglandular parenchyma bilaterally. Right breast: There is a 7 mm oval mass with mixed circumscribed and obscured margins in the 11:30 o'clock breast, 4 cm from the nipple. There are no suspicious calcifications or areas of distortion. Left breast: There is an oval low-density mass possibly with hilar architecture measuring 6 mm in the central 3:00 breast, 4.5 cm from the nipple. There are no suspicious calcifications or areas of distortion. IMPRESSION: Incomplete examination RECOMMENDATION: Right breast: 7 mm mass 11:30 o'clock position as described. Incomplete. BI-RADS Category 0. Additional imaging and possible ultrasound recommended. Left breast: 6 mm low-density mass central 3:00 as described. Incomplete. BI-RADS Category 0. Additional imaging and possible ultrasound recommended. BI-RADS CATEGORY 0: Incomplete examination STANDARD QUALIFYING STATEMENTS: 1. This examination was not reviewed with the aid of Computer-Aided Detection (CAD). 2. A negative or benign imaging report should not preclude biopsy if clinically suspicious findings are present. 3. Dense breasts may obscure an underlying neoplasm. 4. This examination was reviewed with the aid of 3D breast imaging (tomosynthesis).
== END 2018-09-28 14:14 | disposition home or self-care (01) ==
LOC: DI 14:13
DX: Z12.31 Encounter for screening mammogram for malignant neoplasm of breast (principal)
CPT/HCPCS: 77063; 77067

== ENCOUNTER 2018-11-20 12:26 | Outpatient (CLI) | payer BC, OTHER | END 2018-11-20 12:27 | disposition home or self-care (01) | LOC: DI 12:26 | PROVIDERS: ATTEND Physician Assistant | DX: Z53.9 Procedure and treatment not carried out, unspecified reason (principal) ==

== ENCOUNTER 2018-12-01 12:30 | Outpatient (CLI) | payer BC, OTHER ==
--- NOTE | 2018-12-01 14:34 | Mammography Report ---
Reason: ABNORMAL MAMMOGRAM Procedure Date: 12/01/2018 Accession Number: [id number] / [id number] Procedure: JOSEPH - Diag Special Views Dig Bilat CPT Code: FULL RESULT: EXAM: Diag Special Views Dig Bilat DATE: 12/01/2018 1:35 PM CLINICAL HISTORY: Diagnostic examination. The patient is recalled for a right breast 7 mm mass in the left breast 6 mm low-density mass with hilar architecture. TECHNIQUE: (B) - Bilateral Right and left MLO views as well as right and left spot MLO and right and left spot CC views were obtained. COMPARISON: 09/28/2018. PARENCHYMAL PATTERN: (D) - The breast(s) demonstrate(s) heterogeneously dense fibroglandular parenchyma. FINDINGS: The previously identified 7 mm well-circumscribed mass is confirmed on spot imaging as well as ML 3-D imaging. Focused right breast ultrasound reveals a simple appearing wider than tall cyst with increased through transmission which measures up to 0.8 cm at the 11:30 o'clock axis IV cm from the nipple, typically benign. The previously identified left breast 6 mm low-density mass with hilar architecture also persists on spot imaging and 3-D imaging and is confirmed as a typically benign appearing lymph node with hilar architecture on focused left breast ultrasound at the 3:00 position. There are no suspicious masses, calcifications, or areas of distortion. IMPRESSION: Benign findings. BI-RADS category 2. RECOMMENDATION: (ANNUAL) - Recommend routine annual screening mammography. BI-RADS CATEGORY: (2) - Benign Findings. STANDARD QUALIFYING STATEMENTS: 1. This examination was not reviewed with the aid of Computer-Aided Detection (CAD). 2. A negative or benign imaging report should not preclude biopsy if clinically suspicious findings are present. 3. Dense breasts may obscure an underlying neoplasm. 4. This examination was reviewed with the aid of 3D breast imaging (tomosynthesis).
== END 2018-12-01 12:31 | disposition home or self-care (01) ==
LOC: DI 12:30
PROVIDERS: ATTEND Physician Assistant
DX: R92.8 Other abnormal and inconclusive findings on diagnostic imaging of breast (principal)
CPT/HCPCS: 76642; 77066

== ENCOUNTER 2018-12-12 18:14 | Outpatient (CLI) | payer BC, OTHER ==
--- NOTE | 2018-12-13 10:43 | XRAY Report ---
Reason: LOW BACK PAIN,PAIN IN THORACIC SPINE,UNSPECIFIED A Procedure Date: 12/12/2018 Accession Number: [id number] / [id number] Procedure: XR - Lumbar Spine 2 View CPT Code: FULL RESULT: EXAM: LUMBOSACRAL SPINE RADIOGRAPHY EXAM DATE: 12/12/2018 06:42 PM. CLINICAL HISTORY: Low back pain, pain in thoracic spine, unspecified. Chronic left-sided back pain for 3 years. No known trauma. COMPARISONS: LUMBAR SPINE 2 VIEW 12/08/2017 6:55 PM. TECHNIQUE: 3 views. FINDINGS: Alignment: Similar-appearing dextroconvex scoliosis centered about L2-L3 with anterolisthesis of L5 on S1 of approximately 5 mm, underlying pars defect. Bones: Five [id number] lumbar vertebral bodies are present. There is mild anterior loss of height of the L3 vertebral body, approximately 25%, similar to prior. Disks: Normal. Disk heights are maintained. Facets: Moderate facet arthropathy at L3 and L4, severe facet arthropathy at L5. Sacroiliac Joints: Unremarkable. Soft Tissues: Normal. The visualized bowel gas pattern is normal. IMPRESSION: Stable scoliosis. Pars defect with anterolisthesis at L5. Wedge compression fracture of L3, similar to prior. RADIA
--- NOTE | 2018-12-13 10:43 | XRAY Report ---
Reason: LOW BACK PAIN,PAIN IN THORACIC SPINE,UNSPECIFIED A Procedure Date: 12/12/2018 Accession Number: [id number] / [id number] Procedure: XR - Thoracic Spine 2 View CPT Code: FULL RESULT: EXAM: THORACIC SPINE RADIOGRAPHY EXAM DATE: 12/12/2018 06:42 PM. CLINICAL HISTORY: Low back pain, pain in thoracic spine, unspecified. COMPARISON: None. TECHNIQUE: 2 views. FINDINGS: Alignment: Mild thoracic levoconvex scoliosis centered about T3. Bones: No fractures or bone lesions. Disks: Normal. Disk heights are maintained. Soft Tissues: Normal. The visualized lungs and cardiomediastinal silhouette are normal. IMPRESSION: Mild thoracic scoliosis. RADIA
== END 2018-12-12 18:15 | disposition home or self-care (01) ==
LOC: DI 18:14
PROVIDERS: ATTEND Physician Assistant
DX: M41.84 Other forms of scoliosis, thoracic region (principal); M47.9 Spondylosis, unspecified; M43.17 Spondylolisthesis, lumbosacral region; M41.86 Other forms of scoliosis, lumbar region
CPT/HCPCS: 72070; 72100

== ENCOUNTER 2019-01-18 00:17 | Outpatient (CLI) | payer BC, OTHER ==
--- NOTE | 2019-01-18 02:02 | Ultrasound Report ---
Reason: UNSPECIFIED ABDOMINAL PAIN Procedure Date: 01/18/2019 Accession Number: [id number] / [id number] Procedure: US - Retroperitoneal CPT Code: FULL RESULT: EXAM: RENAL ULTRASOUND EXAM DATE: 01/18/2019 01:36 AM. CLINICAL HISTORY: Abdominal pain. Left flank pain. COMPARISON: CT, 01/20/2018. TECHNIQUE: Real-time scanning was performed with static images obtained. FINDINGS: Right Kidney: 10.0 x 4.4 x 4.2 cm. Normal echotexture with no stones, contour-deforming masses, or kasey hydronephrosis. Extrarenal pelvis. Left Kidney: 9.5 x 4.0 x 4.4 cm. Normal echotexture with no stones, contour-deforming masses, or hydronephrosis. Bladder: Bilateral jets seen. The prevoid bladder volume was 378 cc. The postvoid bladder volume was 0 cc. Other: None. IMPRESSION: Normal renal ultrasound. RADIA
== END 2019-01-18 00:18 | disposition home or self-care (01) ==
LOC: DI 00:17
PROVIDERS: ATTEND Physician Assistant
DX: R10.9 Unspecified abdominal pain (principal)
CPT/HCPCS: 76770

== ENCOUNTER 2019-11-09 14:15 | Outpatient (CLI) | payer BC, OTHER ==
--- NOTE | 2019-11-13 16:00 | Mammography Report ---
Reason: SCREENING MAMMO Procedure Date: 11/09/2019 Accession Number: [id number] / [id number] Procedure: JOSEPH - Screening Mammo w/Darrel CPT Code: Final Report FULL RESULT: EXAM: Screening Mammo w/Darrel DATE: 11/09/2019 2:45 PM CLINICAL HISTORY: Routine screening. Mother with breast cancer. TECHNIQUE: (B) - Bilateral CC and MLO views were obtained. COMPARISON: 12/01/2018, 09/28/2018 PARENCHYMAL PATTERN: (D) - The breasts demonstrate heterogeneously dense fibroglandular parenchyma bilaterally. FINDINGS: No significant interval change. There are no suspicious masses, calcifications, or areas of distortion. IMPRESSION: Negative examination. BI-RADS category 1. RECOMMENDATION: (ANNUAL) - Recommend routine annual screening mammography. BI-RADS CATEGORY: (1) - Negative. STANDARD QUALIFYING STATEMENTS: 1. This examination was not reviewed with the aid of Computer-Aided Detection (CAD). 2. A negative or benign imaging report should not preclude biopsy if clinically suspicious findings are present. 3. Dense breasts may obscure an underlying neoplasm. 4. This examination was reviewed with the aid of 3D breast imaging (tomosynthesis).
== END 2019-11-09 14:16 | disposition home or self-care (01) ==
LOC: DI 14:15
PROVIDERS: ATTEND Physician Assistant
DX: Z12.31 Encounter for screening mammogram for malignant neoplasm of breast (principal)
CPT/HCPCS: 77063; 77067

== ENCOUNTER 2021-01-09 14:03 | Outpatient (CLI) | payer BC, OTHER ==
--- NOTE | 2021-01-12 14:50 | Mammography Report ---
BILATERAL DIGITAL SCREENING MAMMOGRAM 3D/2D: 01/09/2021 CLINICAL: Routine screening. Comparison is made to exams dated: 11/09/2019 mammogram, 12/01/2018 mammogram, 12/01/2018 ultrasound, a nd 09/28/2018 mammogram - [facility]. There are scattered fibroglandular elements in both breasts. No significant masses, calcifications, or other findings are seen in either breast. There has been no significant interval change. IMPRESSION: NEGATIVE There is no mammographic evidence of malignancy. A 1 year screening mammogram is recommended. This exam was interpreted at Station ID: [id number]. NOTE: For mammograms, a report in lay terms will be sent to the patient. Approximately 15% of breast malignancies will not be visualized mammographically. In the management of a palpable breast mass, a negative mammogram must not discourage biopsy of a clinically suspicious lesion. Electronically Signed By: Konstantin Boyd acr/penrad:01/09/2021 15:03:15 ACR BI-RADS Category 1: Negative 3341F PARENCHYMAL PATTERN: (A) - The breast(s) demonstrate(s) scattered fibroglandular densities. BI-RADS CATEGORY: (1) - 1 RECOMMENDATION: (ANNUAL) - Recommend routine annual screening mammography. [id number] 1 year screening LATERALITY: (B)
== END 2021-01-09 14:04 | disposition home or self-care (01) ==
LOC: DI 14:03
PROVIDERS: ATTEND Nurse Practitioner Family
DX: Z12.31 Encounter for screening mammogram for malignant neoplasm of breast (principal)

== ENCOUNTER 2021-01-22 14:40 | Outpatient (CLI) | payer BC, OTHER ==
--- NOTE | 2021-01-22 15:35 | CT Report ---
PROCEDURE: Sinuses INDICATIONS: CHRONIC PANSINUSITIS TECHNIQUE: Noncontrast 3.0 mm axial images acquired from the frontal sinuses to the mid-sella, with coronal and sagittal reformats. For radiation dose reduction, the following was used: automated exposure control , adjustment of mA and/or kV according to patient size. COMPARISON: Correlation is made with head CT, 04/11/2015 FINDINGS: Image quality: Excellent. Maxillary Sinuses: No bony remodeling or destruction. Sinuses are clear. Ethmoid Air Cells: No bony remodeling or destruction. Sinuses are clear. Sphenoid Sinuses: No bony remodeling or destruction. Sinuses are clear. Frontal Sinuses: No bony remodeling or destruction. Sinuses are clear. Ostiomeatal Complexes: Ostiomeatal complexes are patent, yet they are constitutionally narrowed. No Jaime cells. Miscellaneous: Visualized intra-orbital contents are normal. No wan bullosa. There is minimal le ftward nasal septal deviation. IMPRESSION: No significant active paranasal sinus disease is seen. Constitutionally narrowed ostiomeatal complexes. Minimal leftward nasal septal deviation. Reviewed by: Hair Guzman MD on 01/22/2021 2:33 PM CARL Approved by: Hair Guzman MD on 01/22/2021 2:33 PM CARL Station ID: [id number]
== END 2021-01-22 14:41 | disposition home or self-care (01) ==
LOC: DI 14:40
PROVIDERS: ATTEND Otolaryngology
DX: J32.4 Chronic pansinusitis (principal); H66.90 Otitis media, unspecified, unspecified ear; J34.89 Other specified disorders of nose and nasal sinuses

== ENCOUNTER 2021-02-13 13:02 | Emergency (ER) | payer BC, OTHER ==
--- NOTE | 2021-02-13 13:25 | ED Physician Documentation ---
PD HPI ABD PAIN - Stated complaint Stated Complaint: R QUAD PX - Chief complaint Chief Complaint: Abd Pain - History obtained from History obtained from: Patient - Additional information Additional information: 50-year-old woman developed sudden onset right lower quadrant pain about an hour ago. Kind of waxes and wanes with pain levels from 5-9. No associated nausea, radiation, or urinary complaints. No history of renal colic. Has a history of exploratory abdominal surgery without intervention in 1982. On further history she notes that she has been having increasing numbers of these "attacks." They do not seem to be related to eating. The frequency of them is becoming more. 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 : None HEENT: None Psych: None Musculoskeletal: None Derm: None - Past Surgical History Past Surgical History: Yes General: EGD Ortho: Other (right foot bunionectomy, Ganglion cyst, right leg trauma/fracture) - Present Medications Home Medications: Ambulatory Orders Medication Instructions Recorded Confirmed Progesterone, Micronized 100 mg PO DAILY 12/31/16 04/05/18 [Progesterone] estradioL [Estradiol] 1 mg PO DAILY 12/31/16 07/16/17 Hyoscyamine Sulfate [Levsin-Sl] 0.125 mg SL Q6H PRN #20 tab.subl 01/20/18 04/05/18 Melatonin 10 mg PO 01/20/18 - Allergies Allergies/Adverse Reactions: Allergies Allergy/AdvReac Type Severity Reaction Status Date / Time shellfish derived Allergy Severe Anaphylaxis Verified 02/13/21 13:10 codeine Allergy Anaphylaxis Verified 02/13/21 13:10 Sulfa (Sulfonamide Allergy Anaphylaxis Verified 02/13/21 13:10 Antibiotics) - Social History Does the pt smoke?: No Smoking Status: Former smoker (Quit in 2007) Does the pt drink ETOH?: Yes Does the pt have substance abuse?: No - Immunizations Immunizations are current?: Yes - POLST Patient has POLST: No PD ED PE NORMAL - Vitals Vital signs reviewed: Yes - General General: Alert and oriented X 3, Other (She appears uncomfortable and is restless) - Cardiac Cardiac: RRR, No murmur - Respiratory Respiratory: No respiratory distress, Clear bilaterally - Abdomen Abdomen: Normal bowel sounds, Soft, Non tender - Back Back: No CVA TTP - Derm Derm: Normal color, Warm and dry - Neuro Neuro: Alert and oriented X 3, Normal speech Results - Vitals Vitals: Vital Signs - 24 hr 02/13/21 13:10 Temperature 36.5 C Heart Rate 85 Respiratory 16 Rate Blood Pressure 116/58 L O2 Saturation 99 Oxygen O2 Source Room air - Labs Labs: Laboratory Tests 02/13/21 02/13/21 02/13/21 13:19 13:24 13:24 WBC 6.2 RBC 4.44 Hgb 13.8 Hct 41.1 MCV 92.6 MCH 31.1 H MCHC 33.6 RDW 11.9 L Plt Count 231 MPV 10.0 Neut # (Auto) 4.1 Lymph # (Auto) 1.7 [place] # (Auto) 0.5 Eos # (Auto) 0.0 Baso # (Auto) 0.0 Absolute Nucleated RBC 0.00 Nucleated RBC % 0.0 Sodium 136 Potassium 3.7 Chloride 102 Carbon Dioxide 25 Anion Gap 9.0 BUN 21 H Creatinine 0.9 Estimated GFR (MDRD) 66 L Glucose 89 Calcium 9.4 Total Bilirubin 0.7 AST 21 ALT 22 Alkaline Phosphatase 47 Total Protein 8.1 Albumin 4.6 Globulin 3.5 Albumin/Globulin Ratio 1.3 Lipase 42 Urine Color YELLOW Urine Clarity CLEAR Urine pH 7.0 Ur Specific [place]yer 1.015 Urine Protein NEGATIVE Urine Glucose (UA) NEGATIVE Urine Ketones NEGATIVE Urine Occult Blood NEGATIVE Urine Nitrite NEGATIVE Urine Bilirubin NEGATIVE Urine Urobilinogen 0.2 (NORMAL) Ur Leukocyte Esterase TRACE H Urine RBC 0-5 Urine WBC 0-3 Ur Squamous Epith Cells RARE Squamous Urine Bacteria Rare Ur Microscopic Review INDICATED Urine Culture Comments INDICATED Urine HCG, Qual NEGATIVE - Rads (name of study) CT A/P Radiology: EMP read contemporaneously PD MEDICAL DECISION MAKING - ED course ED course: 50-year-old woman presents with sudden right-sided abdominal pain. She is nontender. After Toradol she appears much more comfortable and declines further pain medication. Seems C/W biliary colic. Referred to surgery. Incidental findings on CT d/w pt. Departure - Departure Disposition: 01 Home, Self Care Clinical Impression: Biliary colic Condition: Good Record reviewed to determine appropriate education?: Yes Instructions: ED Gallstone W Biliary Colic Follow-Up: Mitali Neal MD [Provider Admit Priv/Credential] - Comments: Followup with Dr Neal, call Tuesday for an appointment. Return if worse. Forms: Activity restrictions
[2021-02-13] MEDS ORDERED: KETOROLAC 30 MG/ML VIAL IVP STA (13:33)
[2021-02-13 13:35] LABS: BASOPHILS % (AUTO) 0.3 %; EOSINOPHILS % (AUTO) 0.3 %; HCT - HEMATOCRIT 41.1 % (37.0-47.0); HGB - HEMOGLOBIN 13.8 g/dL (12.0-16.0); LYMPHOCYTES # (AUTO) 1.7 10^3/uL (1.5-3.5); LYMPHOCYTES % (AUTO) 26.4 %; MEAN CORPUSCULAR HEMOGLOBIN 31.1 pg (27.0-31.0); MEAN CORPUSCULAR HGB CONC 33.6 g/dL (32.0-36.0); MEAN CORPUSCULAR VOLUME 92.6 fL (81.0-99.0); MONOCYTES # (AUTO) 0.5 10^3/uL (0.0-1.0); MONOCYTES % (AUTO) 7.7 %; NEUTROPHILS # (AUTO) 4.1 10^3/uL (1.5-6.6); NEUTROPHILS % (AUTO) 65.1 %; PLT - PLATELET COUNT 231 10^3/uL (130-450); RED BLOOD COUNT 4.44 10^6/uL (4.20-5.40); RED CELL DISTRIBUTION WIDTH 11.9 % (12.0-15.0); WHITE BLOOD COUNT 6.2 x10^3/uL (4.8-10.8)
[2021-02-13 13:36] LABS: BILIRUBIN,URINE NEGATIVE (NEGATIVE); GLUCOSE, URINE (UA) NEGATIVE (NEGATIVE); KETONES,URINE (UA) NEGATIVE (NEGATIVE); LEUKOCYTE ESTERASE, URINE TRACE (NEGATIVE); NITRITE,URINE NEGATIVE (NEGATIVE); OCCULT BLOOD,URINE NEGATIVE (NEGATIVE); PROTEIN,URINE NEGATIVE (NEGATIVE); UROBILINOGEN,URINE 0.2 (NORMAL) E.U./dL (NORMAL)
[2021-02-13 13:41] LABS: BACTERIA,URINE Rare /HPF (None Seen); CLARITY,URINE CLEAR (CLEAR); HCG UR QUAL NEGATIVE; RBC,URINE 0-5 /HPF (0-5); SQUAMOUS EPITHELIAL CELL,UR RARE Squamous (<= Few); WBC,URINE 0-3 /HPF (0-5)
[2021-02-13 13:48] LABS: ALBUMIN 4.6 g/dL (3.2-5.5); ALBUMIN/GLOBULIN RATIO 1.3 (1.0-2.2); BILIRUBIN,TOTAL 0.7 mg/dL (0.2-1.0); CALCIUM 9.4 mg/dL (8.5-10.3); CREATININE 0.9 mg/dL (0.4-1.0); POTASSIUM 3.7 mmol/L (3.5-5.0); TOTAL PROTEIN 8.1 g/dL (6.7-8.2)
--- NOTE | 2021-02-13 14:37 | CT Report ---
PROCEDURE: Abdomen/Pelvis WO INDICATIONS: R abd pain TECHNIQUE: Noncontrast 5 mm thick sections acquired from the diaphragms to the symphysis. 5 mm coronal and sagi ttal reformats were then performed. For radiation dose reduction, the following was used: automated exposure control, adjustment of mA and/or kV according to patient size. COMPARISON: Prior LS-spine MRI 12/12/2018 reviewed.. FINDINGS: Image quality: Excellent. ABDOMEN: Lung bases: Lung bases are clear. Heart size is normal. Solid organs: Liver and spleen are normal in size. Gallbladder contains several peripherally calcif ied 8 x 10 mm ovoid gallstones, but there is no sign of acute cholecystitis. Pancreas is normal in c ontours. No adrenal nodules. Kidneys are normal in size, without hydronephrosis or nephrolithiasis. Peritoneum and bowel: Unenhanced bowel loops demonstrate normal wall thickness and caliber. No free fluid or air. Moderate colonic obstipation on the right and left. Nodes and vessels: No retroperitoneal or mesenteric adenopathy by size criteria. Aorta and inferior vena cava are normal in caliber. Miscellaneous: No ventral hernias. PELVIS: Genitourinary: Bladder wall thickness is normal. Miscellaneous: No inguinal hernias or adenopathy. Generalized moderate colonic obstipation. Bones: No suspicious bony lesions. Note is made of a mild to moderate anterior wedge compression fr acture at L3, and chronic moderate degenerative disc disease at L5-S1 allowing grade 1 anterolisthesi s of L5, equivalent to that present on prior plain film imaging from November 2018. No vertebral body co mpression fractures. IMPRESSION: No sign of diverticulitis or appendicitis. A definite source of right-sided asymmetric abdominal pain is not seen but there is generalized colonic obstipation. Note is made of ovoid gallstones within th e gallbladder lumen measuring up to 8 x 10 mm, but without biliary obstruction or acute cholecystitis . Old mild to moderate L3 wedge compression fracture, chronic moderate degenerative changes at L5 1 wit h associated stable grade 1 anterolisthesis of L5 on S1. Reviewed by: Dariel Allen MD on 02/13/2021 2:35 PM PDT Approved by: Dariel Allen MD on 02/13/2021 2:35 PM PDT Station ID: [id number]
[2021-02-13 15:14] VITALS: BP 120/78
== END 2021-02-13 15:20 | disposition home or self-care (01) ==
LOC: ED 13:02
DX: K80.50 Calculus of bile duct without cholangitis or cholecystitis without obstruction (principal); Z87.891 Personal history of nicotine dependence
CPT/HCPCS: 36415; 80053; 81001; 81003; 81025; 83690; 85025; 87086; 96374; 99284

== ENCOUNTER 2021-03-20 23:30 | Emergency (ER) | payer BC, OTHER ==
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
[2021-03-21] MEDS ORDERED: IBUPROFEN 600 MG TABLET PO STA (02:46)
[2021-03-21 02:53] VITALS: BP 136/82
--- NOTE | 2021-03-21 10:20 | XRAY Report ---
PROCEDURE: Hand 3 View LT INDICATIONS: left thumb pain TECHNIQUE: 3 views of the hand(s) acquired. COMPARISON: None FINDINGS: Bones: No fractures or dislocations. No suspicious bony lesions. Joint space narrowing and periart icular osteophyte formation at the first carpometacarpal joints. Soft tissues: No suspicious soft tissue calcifications. IMPRESSION: 1. First carpal metacarpal joint osteoarthritis. 2. No acute fracture. No osseous lesion. If symptoms and/or clinical suspicion for pathology continue , further assessment with repeat plain films, or advanced imaging (e.g., CT, MRI, or bone scan) is re commended for further assessment. Reviewed by: Jonathan Issa MD on 03/21/2021 9:19 AM CARL Approved by: Jonathan Issa MD on 03/21/2021 9:19 AM CARL Station ID: [id number]
== END 2021-03-21 02:53 | disposition home or self-care (01) ==
LOC: ED 23:30
DX: M65.4 Radial styloid tenosynovitis [de Quervain] (principal); Z87.891 Personal history of nicotine dependence
CPT/HCPCS: 99282; 99283

== ENCOUNTER 2021-04-06 06:06 | Day surgery (SDC) | payer BC, OTHER ==
[2021-04-06] MEDS ORDERED: ceFAZolin 2 GM/50 ML 2 GM/50 ML BAG IV ONE (06:14)
[2021-04-06] MEDS ORDERED: LACTATED RINGERS 1,000 ML IV ONE ×3 (06:36→10:11)
[2021-04-06] MEDS ORDERED: DEXAMETHASONE 4 MG/ML VIAL IVP ONE (07:10)
[2021-04-06] MEDS ORDERED: LIDOCAINE-MPF 2% 5 ML VIAL ONE (07:13)
[2021-04-06] MEDS ORDERED: fentaNYL 100 MCG/2 ML VIAL ONE (07:13)
[2021-04-06] MEDS ORDERED: PROPOFOL 200 MG/20 ML VIAL IVP ONE (07:13)
[2021-04-06] MEDS ORDERED: ONDANSETRON 4 MG/2 ML VIAL ONE ×2 (07:13→09:59)
[2021-04-06] MEDS ORDERED: MIDAZOLAM 2 MG/2 ML VIAL ONE (07:13)
[2021-04-06] MEDS ORDERED: ROCURONIUM 50 MG/5 ML VIAL ONE (07:13)
--- NOTE | 2021-04-06 07:13 | ANESTHESIA ---
Pre-Anesthesia VS, & Labs - Diagnosis cholelithasis - Procedure Lap Amy Vital Signs: Temp Pulse Resp BP Pulse Ox 36.4 C L 85 14 121/69 96 04/06/21 06:22 04/06/21 06:22 04/06/21 06:22 04/06/21 06:22 04/06/21 06:22 Height: 5 ft 3 in Weight (kg): 69.4 kg Body Mass Index: 27.1 BMI Classification: Overweight - NPO >8 hours - Is Patient ?: No Home Medications and Allergies Active Medications Dexamethasone (Dexamethasone 4 Mg/Ml Vial) 4 mg IVP ONCE ONE Stop: 04/06/21 07:11 Scopolamine HBr (Scopolamine Patch) 1 patch TOP Q3D TEAGAN Multivitamin 1 tablet PO DAILY 03/20/21 Vitamin B Complex/Folic Acid [B-Complex Tablet] 0.4 mg PO DAILY 03/20/21 Allergies/Adverse Reactions: Allergies Allergy/AdvReac Type Severity Reaction Status Date / Time shellfish derived Allergy Severe Anaphylaxis Verified 03/20/21 23:40 codeine Allergy Anaphylaxis Verified 03/20/21 23:40 morphine Allergy Anaphylaxis Verified 04/06/21 07:15 Sulfa (Sulfonamide Allergy Anaphylaxis Verified 03/20/21 23:40 Antibiotics) Anes History & Medical History - Anesthetic History Anesthesia Complications: reports: Post-Operative Nausea/Vomiting - Medical History Cardiovascular: reports: None Pulmonary: reports: Sleep apnea (snores) Gastrointestinal: reports: None Urinary: reports: None Neuro: reports: Head injury, Headaches, Migraines Musculoskeletal: reports: Chronic back pain, Other Endocrine/Autoimmune: reports: None Blood Disorders: reports: Anemia Skin: reports: None Smoking Status: Former smoker (Quit in 2006) Psychosocial: reports: No issues indicated History of Cancer?: No - Surgical History General: reports: EGD Orthopedic: reports: Other (Toe and ORIF Ankle fracture) Exam General: Alert, Oriented x3, Cooperative, No acute distress Dental: WNL Mouth Openin Fingerbreadth Neck Mobility: Normal Mallampati classification: II Thyromental Distance: 4-6 cm Respiratory: Lungs clear, Normal breath sounds, No respiratory distress, No accessory muscle use Cardiovascular: Regular rate, Normal S1, Normal S2 Mental/Cognitive Status: Alert/Oriented X3, Normal for patient Plan Anesthesia Type: General Consent for Procedure(s) Verified and Reviewed: Yes Code Status: Attempt Resuscitation ASA classification: 2-Mild systemic disease Is this case an emergency?: No
[2021-04-06] MEDS ORDERED: LIDOCAINE 2%-EPI 1:100000 20 ML MDV ONE (07:25)
[2021-04-06] MEDS ORDERED: BUPIVACAINE 0.5% PF 30 ML VIAL ONE (07:25)
[2021-04-06] MEDS ORDERED: SCOPOLAMINE PATCH TOP SCH (08:00)
[2021-04-06] MEDS ORDERED: LIDOCAINE 1%-EPI 1:100000 20 ML MDV SUBQ ONE (08:21)
[2021-04-06] MEDS ORDERED: BUPIVACAINE 0.5% PF 30 ML VIAL SUBQ ONE ×2 (08:21)
[2021-04-06] MEDS ORDERED: ACETAMINOPHEN 1,000 MG/100 ML 100 ML IV ONE (08:24)
[2021-04-06] MEDS ORDERED: SUGAMMADEX 200 MG/2 ML VIAL IVP ONE (08:35)
--- NOTE | 2021-04-06 08:45 | OPERATIVE REPORT ---
Operative Report - General Procedure Date: 04/06/21 Planned Procedure: Laparoscopic cholecystectomy Pre-Op Diagnosis: Symptomatic cholelithiasis Procedure Performed: Laparoscopic cholecystectomy Post Op Diagnosis: Symptomatic cholelithiasis - Procedure Note Primary Surgeon: Ángel Anesthesia Provider: KEVIN Yates Anesthesia Technique: General ET tube Pathology: Gall bladder to pathology in formalin Estimated Blood Loss (mL): 5 Findings: Gall bladder with adhesions and multiple small stones Complications: None apparent - Other Other Information/Narrative: After obtaining informed consent the patient is brought to the operating room and placed in the supine position on the operating table. Following successful induction of general endotracheal anesthesia, appropriate padding of all bony prominences, and placement of appropriate monitors, the abdomen was prepped and draped in the standard surgical fashion. A timeout was held per scope protocol. All elements of the surgical safety checklist were followed before, during, and after the procedure. Following infiltration with local anesthetic to create a field block, an incision was created inferior to the umbilicus and carried down through the skin and subcutaneous tissue to reveal the fascia below. 2-0 Vicryl retention sutures were placed on either side of the midline and the abdomen was entered under direct vision using a 15 blade scalpel. A 10 mm blunt Fung balloon trocar was placed in the abdominal cavity and it was insufflated to 15 mmHg pressure. The patient was placed in reverse Trendelenburg position with the left side rotated toward the floor. A second trocar, 5 mm, was placed in the midepigastrium under direct vision and after anesthetization of the surrounding skin.A third trocar, also 5 mm was placed in the right upper quadrant for retraction of the gallbladder and a fourth 1 just medial to that as a working port as well. The gallbladder was examined. It was adherent to the surrounding structures including the omentum and the right colon. These structures were carefully dissected free from the surface of the gallbladder using a mixture of blunt and sharp dissection. The fundus of the gallbladder was then grasped and elevated up over the liver revealing the cholecysto hepatoduodenal ligament. The neck of the gallbladder was retracted laterally and the cystic duct and artery were carefully identified. The common duct was visualized but not skeletonized. The cystic duct was clipped 3 times proximally and once distally and divided, the cystic artery was clipped twice proximally, once distally, and divided. The gallbladder was then liberated from its bed in the liver using cautery. It was placed in an Endo Catch bag and removed via the umbilical port with a camera in the epigastric position. The camera was replaced in the umbilical position and the abdomen was checked for hemostasis. It was irrigated with warm saline solution and aspirated free of all fluid and particulate matter. The trochars were then removed under direct vision and the abdomen desufflated. The umbilical incision was closed with interrupted Vicryl suture and Monocryl was placed in all of the skin incisions. All sponge, needle, and instrument counts were correct at the conclusion of the case. The patient was allowed awaken from anesthesia without difficulty and taken to the postane sthesia care unit in good condition.
[2021-04-06] MEDS ORDERED: oxyCODONE 5 MG TABLET PO PRN (08:46)
[2021-04-06] MEDS ORDERED: ACETAMINOPHEN 325 MG TABLET PO PRN (08:46)
[2021-04-06] MEDS ORDERED: IBUPROFEN 600 MG TABLET PO PRN (08:46)
[2021-04-06] MEDS ORDERED: ONDANSETRON 4 MG/2 ML VIAL IVP PRN ×2 (08:46→09:02)
[2021-04-06] MEDS ORDERED: fentaNYL 100 MCG/2 ML VIAL IVP PRN (09:02)
[2021-04-06] MEDS ORDERED: PROMETHAZINE INJ 6.25 MG in SODIUM CHLORIDE 0.9% 50 ML IV PRN (09:02)
[2021-04-06] MEDS ORDERED: NALOXONE 0.4 MG/ML VIAL IVP PRN (09:02)
[2021-04-06] MEDS ORDERED: HYDROmorphone 0.5 MG/0.5 ML SYRINGE IVP PRN (09:02)
[2021-04-06] MEDS ORDERED: ATROPINE ABBOJECT 1 MG/10 ML SYRINGE IVP PRN (09:02)
[2021-04-06] MEDS ORDERED: LACTATED RINGERS 1,000 ML IV SCH (10:00)
[2021-04-06 12:06] VITALS: BP 127/77
--- NOTE | 2021-04-06 14:39 | ANESTHESIA POST OP EVALUATION ---
Anesthesia Post Eval - Post Anesthesia Eval Vitals: Last Vital Signs Temp 36.8 C 04/06/21 12:00 Pulse 80 04/06/21 12:00 Resp 16 04/06/21 12:00 BP 127/77 04/06/21 12:00 Pulse Ox 98 04/06/21 12:00 CV Function Including HR & BP: Stable Pain Control: Satisfactory Nausea & Vomiting: Negative Mental Status: Baseline Respiratory Status: Airway Patent Hydration Status: Satisfactory Anesthesia Complications: None
== END 2021-04-06 06:07 | disposition home or self-care (01) ==
LOC: SDS 06:06
PROVIDERS: ATTEND Surgery
PROC: 0FT44ZZ Resection of Gallbladder, Percutaneous Endoscopic Approach (ICD-10-PCS; principal; 2021-04-06 07:30)
DX: K80.10 Calculus of gallbladder with chronic cholecystitis without obstruction (principal); K82.8 Other specified diseases of gallbladder; I73.00 Raynaud's syndrome without gangrene; G47.30 Sleep apnea, unspecified; Z87.891 Personal history of nicotine dependence; Z79.52 Long term (current) use of systemic steroids
CPT/HCPCS: 47562; J0131; J0690; J3490; J7120; 81025

== ENCOUNTER 2023-06-25 13:12 | Emergency (ER) | payer BC, OTHER ==
[2023-06-25 13:19] VITALS: BP 126/60; O2SAT 100
--- NOTE | 2023-06-25 13:39 | XRAY Report ---
PROCEDURE: Hand 3 View LT INDICATIONS: Trauma TECHNIQUE: 3 views of the hand(s) acquired. COMPARISON: None. FINDINGS: Bones: No fractures or dislocations. No suspicious bony lesions. Soft tissues: No suspicious soft tissue calcifications or masses. IMPRESSION: No acute fracture. No osseous lesion. If symptoms and/or clinical suspicion for pathology continue, f urther assessment with repeat plain films, or advanced imaging (e.g., CT, MRI, or bone scan) is recom mended for further assessment. Reviewed by: Jonathan Guido MD on 06/25/2023 1:37 PM PDT Approved by: Jonathan Guido MD on 06/25/2023 1:37 PM PDT Station ID: [id number]
--- NOTE | 2023-06-25 13:42 | XRAY Report ---
PROCEDURE: Wrist 4 View LT INDICATIONS: Trauma TECHNIQUE: 4 views of the wrist were acquired. COMPARISON: None. FINDINGS: Bones: No fractures or dislocations. No suspicious bony lesions. Soft tissues: No suspicious soft tissue calcifications or masses. IMPRESSION: No acute fracture. No osseous lesion. If symptoms and/or clinical suspicion for pathology continue, f urther assessment with repeat plain films, or advanced imaging (e.g., CT, MRI, or bone scan) is recom mended for further assessment. Reviewed by: Jonathan Guido MD on 06/25/2023 1:41 PM PDT Approved by: Jonathan Guido MD on 06/25/2023 1:41 PM PDT Station ID: [id number]
--- NOTE | 2023-06-25 14:39 | ED Physician Documentation ---
PD HPI UPPER EXT INJURY - Stated complaint Stated Complaint: LT WRIST PX - Chief complaint Chief Complaint: Ext Problem - History obtained from History obtained from: Patient - Additonal information Additional information: She has softball injury decades ago and injured the left thumb such that it was actually having a limited range of motion. 2 months ago she was working the yard and pulling at a large branch and she felt a pop and actually regained her range of motion and initially it felt great but only briefly. Now has pain in the thumb radiating down towards the wrist especially with movements of the thumb. 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 HEENT: Dental implants Psych: None Musculoskeletal: Chronic back pain, Other Derm: None - Past Surgical History Past Surgical History: Yes General: EGD Ortho: Other - Present Medications Home Medications: Ambulatory Orders Medication Instructions Recorded Confirmed Multivitamin 1 tablet PO DAILY 03/20/21 04/06/21 Vitamin B Complex/Folic Acid 0.4 mg PO DAILY 03/20/21 04/06/21 [B-Complex Tablet] Ondansetron Odt [Zofran Odt] 4 mg TL Q6H PRN #10 tablet 04/06/21 oxyCODONE [Roxicodone] 5 mg PO Q4H PRN #20 tablet 04/06/21 - Allergies Allergies/Adverse Reactions: Allergies Allergy/AdvReac Type Severity Reaction Status Date / Time shellfish derived Allergy Severe Anaphylaxis Verified 06/25/23 13:14 codeine Allergy Anaphylaxis Verified 06/25/23 13:14 morphine Allergy Anaphylaxis Verified 06/25/23 13:14 Sulfa (Sulfonamide Allergy Anaphylaxis Verified 06/25/23 13:14 Antibiotics) - Social History Does the pt smoke?: No Smoking Status: Never smoker Does the pt drink ETOH?: Yes Does the pt have substance abuse?: No - Immunizations Immunizations are current?: Yes - POLST Patient has POLST: No PD ED PE NORMAL - Vitals Vital signs reviewed: Yes - General General: Alert and oriented X 3, No acute distress - Extremities Extremities: Other (The hand and wrist are nontender. She does have some pain with forced extension and ulnar deviation of the left thumb. No UCL laxity or pain. No snuffbox tenderness.) - Neuro Neuro: Alert and oriented X 3 Eye Opening: Spontaneous Motor: Obeys Commands Verbal: Oriented GCS Score: 15 - Psych Psych: Normal mood, Normal affect Results - Vitals Vitals: Vital Signs - 24 hr 06/25/23 13:14 Temperature 36.8 C Heart Rate 86 Respiratory 16 Rate Blood Pressure 126/60 O2 Saturation 100 Oxygen O2 Source Room air - Rads (name of study) X-rays of the left wrist and thumb are negative Relevant Findings:: Final report received, EMP independent interpretation of test Departure - Departure Disposition: 01 Home, Self Care Clinical Impression: Tendinitis Condition: Good Record reviewed to determine appropriate education?: Yes Instructions: Tendonitis and Tenosynovitis Comments: As discussed, I think you probably had some scar tissue in that thumb that she broke through causing out tendinitis of it. You can splinted as needed for comfort and take an anti-inflammatory such as ibuprofen or Aleve. Reasonable to follow-up with a hand specialist, the closest would be in [place]. Jules Prescott MD [phone]
== END 2023-06-25 14:45 | disposition home or self-care (01) ==
LOC: ED 13:12
DX: M77.9 Enthesopathy, unspecified (principal)
CPT/HCPCS: 99283

== ENCOUNTER 2023-09-14 10:12 | Outpatient (CLI) | payer BC, OTHER ==
[2023-09-14 10:40] LABS: BASOPHILS % (AUTO) 0.8 %; EOSINOPHILS % (AUTO) 0.2 %; HCT - HEMATOCRIT 43.2 % (37.0-47.0); HGB - HEMOGLOBIN 14.1 g/dL (12.0-16.0); LYMPHOCYTES # (AUTO) 1.9 10^3/uL (1.5-3.5); LYMPHOCYTES % (AUTO) 37.3 %; MEAN CORPUSCULAR HEMOGLOBIN 30.6 pg (27.0-31.0); MEAN CORPUSCULAR HGB CONC 32.6 g/dL (32.0-36.0); MEAN CORPUSCULAR VOLUME 93.7 fL (81.0-99.0); MEAN PLATELET VOLUME 9.5 fL (7.9-10.8); MONOCYTES # (AUTO) 0.3 10^3/uL (0.0-1.0); MONOCYTES % (AUTO) 6.4 %; NEUTROPHILS # (AUTO) 2.9 10^3/uL (1.5-6.6); NEUTROPHILS % (AUTO) 55.1 %; PLT - PLATELET COUNT 243 10^3/uL (130-450); RED BLOOD COUNT 4.61 10^6/uL (4.20-5.40); RED CELL DISTRIBUTION WIDTH 11.9 % (12.0-15.0); WHITE BLOOD COUNT 5.2 x10^3/uL (4.8-10.8)
[2023-09-14 10:53] LABS: % IRON SATURATION 20 % (20-50); ALBUMIN 4.5 g/dL (3.2-5.5); ALBUMIN/GLOBULIN RATIO 1.4 (1.0-2.2); ALKALINE PHOSPHATASE 52 IU/L (42-121); ALT ALANINE AMINOTRANSFERASE 20 IU/L (10-60); AST ASPARTATE AMINOTRANSFERASE 18 IU/L (10-42); BILIRUBIN,TOTAL 0.3 mg/dL (0.2-1.0); BUN - BLOOD UREA NITROGEN 14 mg/dL (6-20); CALCIUM 9.8 mg/dL (8.5-10.3); CARBON DIOXIDE - CO2 29 mmol/L (21-32); CHLORIDE 104 mmol/L (101-111); CHOL/HDL RATIO 3.1 (<4.4); CHOLESTEROL 195 mg/dL; GFR - MDRD 58 (>89); GLUCOSE 88 mg/dL (74-104); HDL CHOLESTEROL 62 mg/dL; IRON 86 ug/dL (50-212); LDL CHOLESTEROL,CALCULATED 118 mg/dL; LDL/HDL RATIO 1.9 (<4.4); POTASSIUM 4.6 mmol/L (3.5-4.5); SODIUM 139 mmol/L (135-145); TOTAL IRON BINDING CAPACITY 430 ug/dL (250-450); TOTAL PROTEIN 7.8 g/dL (6.4-8.9); TRANSFERRIN 307 mg/dL (203-362); TRIGLYCERIDES 73 mg/dL (48-352); VLDL CHOLESTEROL 15 mg/dL
[2023-09-14 11:11] LABS: THYROID STIMULATING HORMONE 1.42 uIU/mL (0.34-5.60)
[2023-09-14 11:17] LABS: FERRITIN 41.9 ng/mL (11.0-306.8)
== END 2023-09-14 10:13 | disposition home or self-care (01) ==
LOC: LAB 10:12
PROVIDERS: ATTEND Nurse Practitioner Family
DX: D64.9 Anemia, unspecified (principal); Z13.220 Encounter for screening for lipoid disorders; Z13.1 Encounter for screening for diabetes mellitus; R51.9 Headache, unspecified
CPT/HCPCS: 36415; 80053; 80061; 82607; 82728; 82746; 83540; 83721; 84443; 84466; 85025

== ENCOUNTER 2023-10-11 11:14 | Outpatient (CLI) | payer BC, OTHER ==
[2023-10-11 11:48] LABS: BILIRUBIN,URINE NEGATIVE (NEGATIVE); GLUCOSE, URINE (UA) NEGATIVE (NEGATIVE); KETONES,URINE (UA) NEGATIVE (NEGATIVE); LEUKOCYTE ESTERASE, URINE TRACE (NEGATIVE); NITRITE,URINE NEGATIVE (NEGATIVE); OCCULT BLOOD,URINE NEGATIVE (NEGATIVE); PH,URINE 7.5 PH (5.0-7.5); PROTEIN,URINE NEGATIVE (NEGATIVE); UROBILINOGEN,URINE 0.2 (NORMAL) E.U./dL (NORMAL)
[2023-10-11 12:00] LABS: CLARITY,URINE CLEAR (CLEAR); RBC,URINE 0-5 /HPF (0-5); SQUAMOUS EPITHELIAL CELL,UR NONE SEEN (<= Few); WBC,URINE 0-3 /HPF (0-5)
[2023-10-11 12:01] LABS: BACTERIA,URINE Moderate /HPF (None Seen)
== END 2023-10-11 11:15 | disposition home or self-care (01) ==
LOC: LAB 11:14
PROVIDERS: ATTEND Nurse Practitioner Family
DX: R82.998 Other abnormal findings in urine (principal)
CPT/HCPCS: 81001; 87086; 87181

== ENCOUNTER 2023-11-03 14:30 | Emergency (ER) | payer BC, OTHER ==
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
[2023-11-03] MEDS: KETOROLAC 30 MG/ML VIAL IVP STA (16:08)
[2023-11-03] MEDS: ACETAMINOPHEN 325 MG TABLET PO STA (16:08)
[2023-11-03 16:09] LABS: BASOPHILS % (AUTO) 0.4 %; EOSINOPHILS % (AUTO) 0.5 %; HCT - HEMATOCRIT 42.3 % (37.0-47.0); LYMPHOCYTES # (AUTO) 1.8 10^3/uL (1.5-3.5); LYMPHOCYTES % (AUTO) 31.4 %; MEAN CORPUSCULAR HEMOGLOBIN 30.6 pg (27.0-31.0); MEAN CORPUSCULAR HGB CONC 33.1 g/dL (32.0-36.0); MEAN CORPUSCULAR VOLUME 92.4 fL (81.0-99.0); MEAN PLATELET VOLUME 9.9 fL (7.9-10.8); MONOCYTES # (AUTO) 0.4 10^3/uL (0.0-1.0); MONOCYTES % (AUTO) 7.8 %; NEUTROPHILS # (AUTO) 3.4 10^3/uL (1.5-6.6); NEUTROPHILS % (AUTO) 59.7 %; PLT - PLATELET COUNT 232 10^3/uL (130-450); RED BLOOD COUNT 4.58 10^6/uL (4.20-5.40); RED CELL DISTRIBUTION WIDTH 11.7 % (12.0-15.0); WHITE BLOOD COUNT 5.7 x10^3/uL (4.8-10.8)
[2023-11-03] MEDS: SODIUM CHLORIDE 0.9% 1,000 ML IV ONE (16:09)
[2023-11-03 16:24] LABS: ALBUMIN 4.6 g/dL (3.2-5.5); ALBUMIN/GLOBULIN RATIO 1.5 (1.0-2.2); BILIRUBIN,TOTAL 0.5 mg/dL (0.2-1.0); CALCIUM 9.9 mg/dL (8.5-10.3); CREATININE 0.9 mg/dL (0.6-1.3); MAGNESIUM 1.8 mg/dL (1.7-2.3); POTASSIUM 3.9 mmol/L (3.5-4.5); TOTAL PROTEIN 7.7 g/dL (6.4-8.9)
--- NOTE | 2023-11-03 16:38 | CT Report ---
PROCEDURE: Head WO INDICATIONS: worsening headache, has chiari malformation TECHNIQUE: Noncontrast 4.5 mm thick angled axial sections acquired from the foramen magnum to the vertex. For r adiation dose reduction, the following was used: automated exposure control, adjustment of mA and/or kV according to patient size. COMPARISON: None. FINDINGS: Image quality: Excellent. CSF spaces: Basal cisterns are patent. No extra-axial fluid collections. Ventricles are normal in size and shape. Brain: No midline shift. No intracranial masses or hemorrhage. Bradley-white matter interface is norm al. Skull and face: Calvarium and visualized facial bones are intact, without suspicious lesions. Sinuses: Visualized sinuses and mastoids are clear. IMPRESSION: No acute intracranial pathology. Reviewed by: Julian Jerry MD on 11/03/2023 4:37 PM PDT Approved by: Julian Jerry MD on 11/03/2023 4:37 PM PDT Station ID: [id number]
[2023-11-03 16:49] VITALS: BP 113/67; O2SAT 98
[2023-11-03] MEDS: DEXAMETHASONE 10 MG/ML VIAL IVP STA (17:35)
== END 2023-11-03 17:53 | disposition home or self-care (01) ==
LOC: ED 14:30
DX: R51.9 Headache, unspecified (principal); Z87.820 Personal history of traumatic brain injury
CPT/HCPCS: 36415; 70450; 80053; 83735; 85025; 96374; 96375; 99284; A9270